=== PATIENT | female | born 1980 | race Caucasian/White ===

== ENCOUNTER 2019-04-08 18:02 | Outpatient (CLI) | payer BC, MEDICARE ==
[2019-04-08 18:20] LABS: BASOPHILS % 0.5 % (0.0-1.5); NEUTROPHILS # 4.5 # k/uL (1.4-7.7)
== END 2019-04-08 18:04 ==
LOC: LAB 18:02
PROVIDERS: ATTEND Family Medicine
DX: Z79.01 Long term (current) use of anticoagulants (principal); Z51.81 Encounter for therapeutic drug level monitoring
CPT/HCPCS: 36415; 85025; 85610; 85730

== ENCOUNTER 2019-04-09 10:33 | Outpatient (CLI) | payer BC ==
[2019-04-09 11:41] LABS: TSH 0.47 mIU/l (0.465-4.685)
== END 2019-04-09 10:35 ==
LOC: LAB 10:33
PROVIDERS: ATTEND Family Medicine
DX: D64.9 Anemia, unspecified (principal); E03.9 Hypothyroidism, unspecified
CPT/HCPCS: 36415; 82607; 82746; 83540; 83550; 84439; 84443; 84481; 85651